=== PATIENT | male | born 1955 | race Caucasian/White ===

== ENCOUNTER 2024-01-01 13:18 | Inpatient (IN) | payer MEDICARE, OTHER ==
[~2024-01-01] VITALS: Ht 182.9 cm; Wt 119.3 kg
[2024-01-01 13:42] LABS: BASOPHILS # (AUTO) 0.1 K/UL (0.0-0.2); BASOPHILS % (AUTO) 0.7 % (0.0-2.0); EOSINOPHILS # (AUTO) 0.5 K/uL (0.0-0.7); EOSINOPHILS % (AUTO) 4.8 % (0.0-7.0); HEMATOCRIT 34.6 % (36.7-47.1); HEMOGLOBIN 11.6 g/dL (12.5-16.3); LYMPHOCYTES # (AUTO) 1.1 K/uL (0.8-4.8); LYMPHOCYTES % (AUTO) 10.3 % (20.5-51.5); MEAN CORPUSCULAR HEMOGLOBIN 28.8 uug (23.8-33.4); MEAN CORPUSCULAR HGB CONC 33 g/dL (32.5-36.3); MEAN CORPUSCULAR VOLUME 86.2 fL (73.0-96.2); MONOCYTES # (AUTO) 0.8 K/uL (0.1-1.30); MONOCYTES % (AUTO) 6.9 % (0.0-11.0); NEUTROPHILS # (AUTO) 8.5 K/uL (1.8-8.9); NEUTROPHILS % (AUTO) 77.3 % (38.5-71.5); PLATELET COUNT (AUTO) 201 K/uL (152-348); RED BLOOD CELL COUNT(AUTO) 4.02 MIL/uL (4.06-5.63); RED CELL DISTRIBUTION WIDTH 15.4 % (12.1-16.2); WHITE BLOOD COUNT (AUTO) 11.1 K/uL (3.6-10.2)
[2024-01-01] MEDS ORDERED: NITROGLYCERIN OINT 1 GM PACKET TP ONE (13:51)
[2024-01-01] MEDS ORDERED: ONDANSETRON 4 MG/2 ML VIAL ONE ×2 (13:51→15:09)
[2024-01-01] MEDS ORDERED: NITROGLYCERIN 0.4 MG/TAB BOTTLE SL ONE (13:51)
[2024-01-01] MEDS: NITROGLYCERIN 0.4 MG/TAB BOTTLE SL ONE ×2 (13:55→23:10)
[2024-01-01] MEDS: NITROGLYCERIN OINT 1 GM PACKET TP ONE (13:57)
[2024-01-01 14:05] LABS: CALCIUM 8.6 mg/dL (8.5-10.1); CARBON DIOXIDE 23 mmol/L (21-32); CHLORIDE 102 mmol/L (98-107); CREATININE 1.3 mg/dL (0.6-1.3); GLUCOSE 216 mg/dL (74-106); POTASSIUM 4.5 mmol/L (3.5-5.1); SODIUM SERUM 136 mmol/L (136-145); UREA NITROGEN, BLOOD 33 mg/dL (7-18)
[2024-01-01 14:11] LABS: DIFFERENTIAL COMMENT 1
[2024-01-01] MEDS: ONDANSETRON 4 MG/2 ML VIAL IV ONE ×2 (14:11→15:10)
[2024-01-01] MEDS ORDERED: SACU1TAB PO (14:16)
[2024-01-01] MEDS ORDERED: APIX5TAB4 PO (14:16)
[2024-01-01] MEDS ORDERED: ASCO500T85 PO (14:16)
[2024-01-01] MEDS ORDERED: TAMS-3 PO (14:16)
[2024-01-01] MEDS ORDERED: MELA5TAB21 PO (14:16)
[2024-01-01] MEDS ORDERED: ACET325T53 PO (14:16)
[2024-01-01] MEDS ORDERED: ASPI81TA31 PO (14:16)
[2024-01-01] MEDS ORDERED: ZOLP5TAB2 PO (14:16)
[2024-01-01] MEDS ORDERED: ATOR80TA PO (14:16)
[2024-01-01] MEDS ORDERED: FURO-151 PO (14:16)
[2024-01-01] MEDS ORDERED: NITR0.4T48 SL (14:16)
[2024-01-01] MEDS ORDERED: CLOP75TA15 PO (14:16)
[2024-01-01] MEDS ORDERED: CARV6.25 PO (14:16)
[2024-01-01] MEDS ORDERED: INSU100I26 SQ (14:16)
[2024-01-01] MEDS ORDERED: MULT-225 PO (14:16)
[2024-01-01] MEDS ORDERED: ISOS60TA72 PO (14:16)
[2024-01-01] MEDS ORDERED: NPH,100V SQ (14:16)
[2024-01-01] MEDS ORDERED: CLON0.1T PO (14:16)
[2024-01-01 14:19] LABS: NT-PRO BNP 1721 pg/mL (0-125)
[2024-01-01] MEDS ORDERED: HYDROMORPHONE 1 MG/1 ML DISP.SYRIN ONE (15:10)
[2024-01-01] MEDS ORDERED: METOPROLOL TARTRATE 5 MG/5 ML VIAL IVP ONE (15:10)
[2024-01-01] MEDS: HYDROMORPHONE 1 MG/1 ML DISP.SYRIN IV ONE (15:12)
[2024-01-01] MEDS: METOPROLOL TARTRATE 5 MG/5 ML VIAL IVP ONE (15:15)
[2024-01-01] MEDS ORDERED: CLONIDINE HCL 0.1 MG TABLET PO PRN (18:30)
[2024-01-01] MEDS ORDERED: DEXTROSE 50% 50 ML DISP.SYRIN IV PRN (18:45)
[2024-01-01 18:55] LABS: BASOPHILS # (AUTO) 0.2 K/UL (0.0-0.2); EOSINOPHILS # (AUTO) 0.1 K/uL (0.0-0.7); EOSINOPHILS % (AUTO) 0.6 % (0.0-7.0); HEMATOCRIT 31.9 % (36.7-47.1); HEMOGLOBIN 10.6 g/dL (12.5-16.3); LYMPHOCYTES # (AUTO) 0.8 K/uL (0.8-4.8); MEAN CORPUSCULAR HEMOGLOBIN 28.5 uug (23.8-33.4); MEAN CORPUSCULAR HGB CONC 33 g/dL (32.5-36.3); MEAN CORPUSCULAR VOLUME 85.5 fL (73.0-96.2); MONOCYTES # (AUTO) 0.5 K/uL (0.1-1.30); MONOCYTES % (AUTO) 5.3 % (0.0-11.0); NEUTROPHILS # (AUTO) 8.7 K/uL (1.8-8.9); NEUTROPHILS % (AUTO) 84.1 % (38.5-71.5); PLATELET COUNT (AUTO) 180 K/uL (152-348); RED BLOOD CELL COUNT(AUTO) 3.73 MIL/uL (4.06-5.63); RED CELL DISTRIBUTION WIDTH 15.4 % (12.1-16.2); WHITE BLOOD COUNT (AUTO) 10.3 K/uL (3.6-10.2)
[2024-01-01 19:00] LABS: DIFFERENTIAL COMMENT 1
[2024-01-01 19:14] LABS: CALCIUM 8.2 mg/dL (8.5-10.1); CREATININE 1.3 mg/dL (0.6-1.3); MAGNESIUM 2.1 mg/dL (1.8-2.4); PHOSPHOROUS 3.8 mg/dL (2.5-4.9); POTASSIUM 4.8 mmol/L (3.5-5.1)
[2024-01-01 20:30] VITALS: BP 155/80; TEMP 98.1; O2SAT 97
[2024-01-01] MEDS ORDERED: ACETAMINOPHEN 325 MG TABLET PO PRN (20:30)
[2024-01-01] MEDS: BLOOD SUGAR DIAGNOSTIC 1 EACH STRIP VI SCH (21:00)
[2024-01-01] MEDS ORDERED: Medication Not On Formulary EA (Atorvastatin Calcium (Lipitor) 80 MG) PO SCH (21:00)
[2024-01-01] MEDS ORDERED: Medication Not On Formulary EA (Melatonin 5 MG) PO SCH (21:00)
[2024-01-01] MEDS: FUROSEMIDE 40 MG/4 ML VIAL IV SCH (23:09)
[2024-01-01] MEDS: ATORVASTATIN 40 MG TABLET PO SCH (23:09)
[2024-01-01] MEDS ORDERED: INSULIN GLARGINE,HUM 300 UNITS/3 ML CARTRIDGE SQ ONE (23:18)
[2024-01-01] MEDS: INSULIN GLARGINE,HUM 300 UNITS/3 ML CARTRIDGE SQ SCH (23:31)
[2024-01-01] MEDS: INSULIN REGULAR, HUMAN 300 UNITS/3 ML VIAL SQ PRN (23:33)
[2024-01-02] VITALS (7 sets, daily range): BP systolic 109–159; BP diastolic 53–101; TEMP 97.8–98.4; O2SAT 96–98
[2024-01-02] MEDS: INSULIN REGULAR, HUMAN 300 UNIT/3 ML VIAL SQ PRN (08:41)
[2024-01-02] MEDS: SACUBITRIL/VALSARTAN 24 MG-26 TABLET PO SCH (08:41)
[2024-01-02] MEDS: TAMSULOSIN HCL 0.4 MG CAP.SR.24H PO SCH (08:42)
[2024-01-02] MEDS: APIXABAN 5 MG TABLET PO SCH (08:42)
[2024-01-02] MEDS: ASCORBIC ACID 500 MG TABLET PO SCH (08:42)
[2024-01-02] MEDS: RANOLAZINE 500 MG TAB.ER.12H PO SCH (08:42)
[2024-01-02] MEDS: ASPIRIN 81 MG TAB.CHEW PO SCH (08:42)
[2024-01-02] MEDS: CLOPIDOGREL 75 MG TABLET PO SCH (08:42)
[2024-01-02] MEDS: MULTIVITAMINS,THERAPEUTIC TABLET PO SCH (08:43)
[2024-01-02] MEDS: ISOSORBIDE MONONITRATE 60 MG TAB.SR.24H PO SCH (08:43)
[2024-01-02] MEDS: BISACODYL 5 MG TABLET.DR PO PRN (08:43)
[2024-01-02] MEDS: CARVEDILOL 6.25 MG TABLET PO SCH (08:43)
[2024-01-02] MEDS ORDERED: Medication Not On Formulary EA (Apixaban (Eliquis) 5 MG) PO SCH (09:00)
[2024-01-02] MEDS ORDERED: ISOSORBIDE MONONITRATE 30 MG TAB.SR.24H PO SCH ×2 (09:00)
[2024-01-02] MEDS ORDERED: Medication Not On Formulary EA (Multivitamins (Multiple Vitamin) 1 TAB) PO SCH (09:00)
[2024-01-02] MEDS ORDERED: ISOSORBIDE MONONITRATE 60 MG TAB.SR.24H PO SCH (09:00)
[2024-01-02] MEDS: NITROGLYCERIN 0.4 MG/TAB BOTTLE SL PRN (09:05)
[2024-01-02] MEDS ORDERED: ACETAMINOPHEN 325 MG TABLET PO PRN (11:30)
[2024-01-02] MEDS ORDERED: REMEDY ESSENTIAL ZINC PASTE 113 GM TP PRN (11:30)
[2024-01-02] MEDS ORDERED: ZOLPIDEM 5 MG TABLET PO PRN (11:30)
[2024-01-02] MEDS ORDERED: ONDANSETRON 4 MG/2 ML VIAL IV PRN (11:30)
[2024-01-02] MEDS: SODIUM HYPOCHLORITE 0.25% (HALF STRENGTH) 480 ML BOTTLE TOP SCH (17:56)
[2024-01-02] MEDS: MELATONIN 3 MG TABLET PO SCH (20:30)
[2024-01-02] MEDS: ENOXAPARIN SODIUM 120 MG/0.8 ML SYRINGE SQ SCH (20:45)
[2024-01-02] MEDS: MAGNESIUM HYDROXIDE 30 ML LIQUID UDC PO PRN (20:54)
[2024-01-03] VITALS (8 sets, daily range): BP systolic 72–140; BP diastolic 34–73; TEMP 97.9–98.8; O2SAT 96–98
[2024-01-03 06:12] LABS: BASOPHILS # (AUTO) 0.1 K/UL (0.0-0.2); BASOPHILS % (AUTO) 0.8 % (0.0-2.0); EOSINOPHILS # (AUTO) 0.2 K/uL (0.0-0.7); EOSINOPHILS % (AUTO) 1.6 % (0.0-7.0); HEMATOCRIT 29.8 % (36.7-47.1); HEMOGLOBIN 10.1 g/dL (12.5-16.3); LYMPHOCYTES # (AUTO) 1.6 K/uL (0.8-4.8); LYMPHOCYTES % (AUTO) 15.9 % (20.5-51.5); MEAN CORPUSCULAR HEMOGLOBIN 28.7 uug (23.8-33.4); MEAN CORPUSCULAR HGB CONC 34 g/dL (32.5-36.3); MEAN CORPUSCULAR VOLUME 85.3 fL (73.0-96.2); MONOCYTES % (AUTO) 10.5 % (0.0-11.0); NEUTROPHILS # (AUTO) 7.1 K/uL (1.8-8.9); NEUTROPHILS % (AUTO) 71.2 % (38.5-71.5); PLATELET COUNT (AUTO) 155 K/uL (152-348); RED CELL DISTRIBUTION WIDTH 15.1 % (12.1-16.2)
[2024-01-03 06:23] LABS: DIFFERENTIAL COMMENT 1
[2024-01-03 06:26] LABS: CALCIUM 8.1 mg/dL (8.5-10.1); CREATININE 1.4 mg/dL (0.6-1.3); MAGNESIUM 2.1 mg/dL (1.8-2.4); PHOSPHOROUS 3.5 mg/dL (2.5-4.9); POTASSIUM 3.9 mmol/L (3.5-5.1)
[2024-01-03] MEDS: PROTEIN SUPPLEMENT (PROSTAT) 30 ML LIQUID PO SCH (08:25)
[2024-01-03] MEDS: MORPHINE SULFATE 4 MG/1 ML DISP.SYRIN IV PRN (09:13)
[2024-01-03] MEDS: ISOSORBIDE MONONITRATE 30 MG TAB.SR.24H PO ONE (09:16)
[2024-01-03] MEDS ORDERED: IV NORMAL SALINE 500 ML IV ONE (16:30)
[2024-01-03] MEDS: IV NORMAL SALINE 250 ML IV ONE ×2 (16:40→18:34)
[2024-01-03 17:35] LABS: *BILIRUBIN,URIN NEGATIVE (NEGATIVE); *BLOOD, URINE NEGATIVE (NEGATIVE); *CLARITY,URINE CLEAR (CLEAR); *COLOR,URINE YELLOW (YELLOW); *KETONES,URINE NEGATIVE (NEGATIVE); *PROTEIN,URINE NEGATIVE (NEGATIVE); *UROBILINOGEN,URINE 0.2 E.U./dl (NORMAL); LEUKOCYTE ESTERASE ,URINE 1+ (NEGATIVE); NITRITE, URINE NEGATIVE (NEGATIVE); PH,URINE 5.5 (5.0-8.0); UGLUCOSE NEGATIVE (NEGATIVE)
[2024-01-03 17:47] LABS: BACTERIA,URINE MODERATE /HPF (NONE SEEN); RBC,URINE 0-3 /HPF (0-3); SQUAMOUS EPITHELIAL CELL,UR FEW /HPF (NONE SEEN)
[2024-01-03 17:52] LABS: *CREATININE,URINE 71.8 mg/dL (30-125); *URINE TOTAL PROTEIN RANDOM 7.9 mg/dL (<150/24HR)
[2024-01-04] VITALS (9 sets, daily range): BP systolic 110–119; BP diastolic 53–89; TEMP 98.1–98.5; O2SAT 95–98
[2024-01-04 06:17] LABS: BASOPHILS # (AUTO) 0.1 K/UL (0.0-0.2); BASOPHILS % (AUTO) 0.9 % (0.0-2.0); DIFFERENTIAL COMMENT 1; EOSINOPHILS # (AUTO) 0.3 K/uL (0.0-0.7); HEMATOCRIT 28.9 % (36.7-47.1); HEMOGLOBIN 9.9 g/dL (12.5-16.3); LYMPHOCYTES # (AUTO) 1.6 K/uL (0.8-4.8); LYMPHOCYTES % (AUTO) 17.9 % (20.5-51.5); MEAN CORPUSCULAR HEMOGLOBIN 28.9 uug (23.8-33.4); MEAN CORPUSCULAR HGB CONC 34 g/dL (32.5-36.3); MEAN CORPUSCULAR VOLUME 84.8 fL (73.0-96.2); MONOCYTES % (AUTO) 10.9 % (0.0-11.0); NEUTROPHILS % (AUTO) 67.3 % (38.5-71.5); PLATELET COUNT (AUTO) 151 K/uL (152-348); RED BLOOD CELL COUNT(AUTO) 3.41 MIL/uL (4.06-5.63); RED CELL DISTRIBUTION WIDTH 15.2 % (12.1-16.2); WHITE BLOOD COUNT (AUTO) 8.9 K/uL (3.6-10.2)
[2024-01-04 06:29] LABS: CALCIUM 7.8 mg/dL (8.5-10.1); CREATININE 1.4 mg/dL (0.6-1.3); POTASSIUM 4.1 mmol/L (3.5-5.1)
[2024-01-04] MEDS: ISOSORBIDE MONONITRATE 60 MG TAB.SR.24H PO SCH (08:44)
== END 2024-01-05 00:25 | disposition short-term general hospital (02) | DRG 280 ==
LOC: ER 13:18 → TELE3 15:30
PROVIDERS: ADMIT Internal Medicine; ATTEND Internal Medicine
DX: I13.0 Hypertensive heart and chronic kidney disease with heart failure and stage 1 through stage 4 chronic kidney disease, or unspecified chronic kidney disease (principal); I50.43 Acute on chronic combined systolic (congestive) and diastolic (congestive) heart failure; I21.4 Non-ST elevation (NSTEMI) myocardial infarction; E44.0 Moderate protein-calorie malnutrition; L97.811 Non-pressure chronic ulcer of other part of right lower leg limited to breakdown of skin; I48.92 Unspecified atrial flutter; I48.20 Chronic atrial fibrillation, unspecified; N17.9 Acute kidney failure, unspecified; E11.621 Type 2 diabetes mellitus with foot ulcer; R60.0 Localized edema; E66.9 Obesity, unspecified; N18.9 Chronic kidney disease, unspecified; E11.42 Type 2 diabetes mellitus with diabetic polyneuropathy; L97.512 Non-pressure chronic ulcer of other part of right foot with fat layer exposed; E11.622 Type 2 diabetes mellitus with other skin ulcer; M89.8X9 Other specified disorders of bone, unspecified site; N40.0 Benign prostatic hyperplasia without lower urinary tract symptoms; Z79.899 Other long term (current) drug therapy; I25.110 Atherosclerotic heart disease of native coronary artery with unstable angina pectoris; Z68.35 Body mass index [BMI] 35.0-35.9, adult; Z79.82 Long term (current) use of aspirin; Z79.4 Long term (current) use of insulin; Z98.61 Coronary angioplasty status; Z79.01 Long term (current) use of anticoagulants; Z89.421 Acquired absence of other right toe(s); E11.22 Type 2 diabetes mellitus with diabetic chronic kidney disease; D64.9 Anemia, unspecified
CPT/HCPCS: 36415; 71045; 83735; 84100; 84300; 84484; 85025; 93005; 93307; 94760; A4606; A4663; G0378; J1170; J1650; J1815; J1940; J2270; J2405; J3490